=== PATIENT | male | born 1965 | race Caucasian/White ===

== ENCOUNTER 2023-01-27 16:58 | Emergency (ER) | payer BC ==
[~2023-01-27] VITALS: Ht 182.9 cm; Wt 86.8 kg
[2023-01-27] MEDS ORDERED: METR-265 PO (17:16)
[2023-01-27] MEDS ORDERED: AMOX875T2 PO (17:16)
[2023-01-27] MEDS ORDERED: ONDANSETRON 4MG 2ML VIAL IV ONE (17:55)
[2023-01-27] MEDS ORDERED: KETOROLAC 30 MG/ML 1ML VIAL IV ONE (17:55)
[2023-01-27 18:00] LABS: HEMATOCRIT 38.3 % (42.0-52.0); HEMOGLOBIN 13.2 g/dl (13.5-17.5); MEAN CORPUSCULAR HEMOGLOBIN 34.4 pg (27.0-33.0); MEAN CORPUSCULAR HGB CONC 34.5 g/dl (32.0-36.5); MEAN CORPUSCULAR VOLUME 99.7 fl (80.0-96.0); PLATELET COUNT, AUTOMATED 320 10^3/uL (150-450); RED BLOOD COUNT 3.84 10^6/uL (4.30-6.10); WHITE BLOOD COUNT 8.7 10^3/uL (4.0-10.0)
[2023-01-27 18:19] LABS: LIPASE 31 U/L (12-53)
[2023-01-27 18:22] LABS: ALBUMIN 3.8 G/DL (3.2-5.2); ALKALINE PHOSPHATASE 56 U/L (46-116); ALT/SGPT 48 U/L (7.0-40); AST/SGOT 23 U/L (<34); BILIRUBIN,DIRECT 0.4 MG/DL (<0.4); BILIRUBIN,TOTAL 0.8 MG/DL (0.3-1.2); BLOOD UREA NITROGEN 6 MG/DL (9-23); CALCIUM LEVEL 9.5 MG/DL (8.5-10.1); CARBON DIOXIDE LEVEL 27 MMOL/L (20-31); CHLORIDE LEVEL 101 MMOL/L (98-107); CK-MB VALUE MASS < 1.0 NG/ML (<3.6); CREATININE FOR GFR 0.79 MG/DL (0.70-1.30); GLOMERULAR FILTRATION RATE > 60.0 (>56); GLUCOSE, FASTING 150 MG/DL (60-100); POTASSIUM SERUM 4.5 MMOL/L (3.5-5.1); SODIUM LEVEL 136 MMOL/L (136-145); TOTAL PROTEIN 6.6 G/DL (5.7-8.2)
[2023-01-27 18:23] LABS: CPK CREATINE PHOSPHOKINASE 56 U/L (46-171); MB/CK RELATIVE INDEX 1.78 (< OR =4)
[2023-01-27 18:33] LABS: RSV AMPLIFICATION NEGATIVE (NEGATIVE)
[2023-01-27 18:42] LABS: ATYPICAL LYMPH 2 % (0-5); EOSINOPHILS 2 % (0-3); LYMPHOCYTES 20 % (16-44); MONOCYTES 9 % (0-5); NEUTROPHILS 63 % (28-66); PLATELET ESTIMATE NORMAL (NORMAL)
[2023-01-27 19:23] VITALS: BP 157/89; TEMP 97.7; O2SAT 97
== END 2023-01-27 19:21 | disposition home or self-care (01) ==
LOC: M ED 16:58
DX: R10.9 Unspecified abdominal pain (principal); I45.10 Unspecified right bundle-branch block; Z79.899 Other long term (current) drug therapy
CPT/HCPCS: 76705; 80047; 80048; 80076; 82550; 82553; 83690; 84484; 85025; 87631; 93005; 96374; 99284; J1885; J2405

== ENCOUNTER 2023-03-18 10:17 | Day surgery (SDC) | payer BC ==
[~2023-03-18] VITALS: Ht 182.9 cm; Wt 80.6 kg
[~2023-03-18 10:17] MED LIST: ACETAMINOPHEN 1000MG 100ML IV BAG As Ordered ONE; AMOX875T2 PO; CelecoXIB 400 MG CAP PO ONE; INDOCYANINE GREEN 25MG VIAL (IC-GREEN) As Ordered ONE; KETOROLAC 60MG 2ML VIAL As Ordered ONE; LIDOCAINE 1% SDV 30ML VIAL As Ordered ONE; LIDOCAINE 2% 100MG/5ML SDV (FOR ANES.) As Ordered ONE; METR-265 PO; MIDAZOLAM INJ 2MG/2ML VIAL As Ordered ONE; ONDANSETRON 4MG 2ML VIAL As Ordered ONE; ROCURONIUM BROMIDE 50MG/5ML VIAL As Ordered ONE; SUGAMMADEX SODIUM 500 MG/5 ML VIAL (BRIDION) As Ordered ONE; ceFAZolin SOD 2 GM in IV 1 EA IV ONE; fentaNYL 250 MCG/5 ML INJECTION As Ordered ONE; propofoL 200 MG/20 ML VIAL As Ordered ONE
[2023-03-18] MEDS ORDERED: LR 1,000 ML IV SCH ×2 (10:20→13:25)
[2023-03-18] MEDS ORDERED: ePHEDrine SULFATE 25 MG/5 ML(5MG/ML) SYRINGE As Ordered ONE (11:49)
[2023-03-18] MEDS ORDERED: ROCURONIUM BROMIDE 50MG/5ML VIAL As Ordered ONE (11:56)
[2023-03-18] MEDS ORDERED: fentaNYL 100 MCG/2 ML INJECTION As Ordered ONE (12:31)
[2023-03-18] MEDS ORDERED: propofoL 200 MG/20 ML VIAL As Ordered ONE (13:15)
[2023-03-18] MEDS ORDERED: ONDANSETRON 4MG 2ML VIAL IV PRN (13:25)
[2023-03-18] MEDS ORDERED: oxyCODONE 5MG TAB PO PRN (13:25)
[2023-03-18] MEDS ORDERED: HYDROMORPHONE HCL 0.5 MG/ 0.5 ML SYRINGE IV PRN (13:25)
[2023-03-18] MEDS ORDERED: fentaNYL 100 MCG/2 ML INJECTION IV PRN (13:25)
[2023-03-18] MEDS ORDERED: NORCO, ANEXSIA 5/325MG TABLET (HYDROcodone/ACETAMINOPHEN) PO PRN ×2 (14:00)
[2023-03-18 15:50] VITALS: BP 152/88; TEMP 97.3; O2SAT 97
[2023-03-18] MEDS ORDERED: KETOROLAC 30 MG/ML 1ML VIAL IV SCH (17:00)
== END 2023-03-18 16:04 | disposition home or self-care (01) ==
LOC: M SDC 10:17
PROVIDERS: ATTEND Surgery
DX: K80.10 Calculus of gallbladder with chronic cholecystitis without obstruction (principal); K82.1 Hydrops of gallbladder; Z87.19 Personal history of other diseases of the digestive system; Z90.49 Acquired absence of other specified parts of digestive tract; Z87.891 Personal history of nicotine dependence
CPT/HCPCS: 47563; 88304; J0131; J0665; J0690; J1100; J1885; J2250; J2405; J3010; Q9968; S2900